=== PATIENT | male | born 1945 | race Caucasian/White ===

== ENCOUNTER → 2017-10-17 | Outpatient (CLI) | payer OTHER ==
[~2017-10-17] MED LIST: ANTIVERT25 MG PO; ASPIR 8181 M1 PO; NAPROXEN375 MG PO; NORVASC5 MG PO; PERCOCET 10-321 EACH PO; PRINIVIL5 MG PO; ROBAXIN500 MG PO; TRAMADOL 50 MG50 MG PO; XARELTO10 MG PO
== END ==
LOC: RAD 09:20
DX: J18.9 Pneumonia, unspecified organism (principal); M47.894 Other spondylosis, thoracic region; M19.012 Primary osteoarthritis, left shoulder; M19.011 Primary osteoarthritis, right shoulder